=== PATIENT | female | born 1995 | race African-American/Black ===

== ENCOUNTER 2018-01-16 02:01 | Emergency (ER) | payer SELFPAY ==
[2018-01-16] MEDS ORDERED: Cephalexin 250 MG CAP ONE (02:30)
[2018-01-16] MEDS ORDERED: Ketorolac Tromethamine 60 MG/2 ML VIAL ONE (02:30)
== END 2018-01-16 02:41 | disposition home or self-care (01) ==
LOC: NAV ERS 02:01
DX: K02.9 Dental caries, unspecified (principal)
CPT/HCPCS: 96372; J1885

== ENCOUNTER 2019-04-07 03:50 | Emergency (ER) | payer OTHER, SELFPAY ==
[2019-04-07] MEDS ORDERED: Naproxen 500 MG TAB ONE (04:28)
[2019-04-07] MEDS ORDERED: Lidocaine Viscous Sol 2% 15 ml UD Cup ONE (04:28)
[2019-04-07] MEDS ORDERED: Mag-Al Plus 1200 MG/1200 MG/120 MG/30 ML UDCUP ONE (04:28)
== END 2019-04-07 04:38 | disposition home or self-care (01) ==
LOC: NAV ERS 03:50
DX: K12.1 Other forms of stomatitis (principal)
CPT/HCPCS: 99282

== ENCOUNTER 2019-04-13 23:16 | Emergency (ER) | payer OTHER | END 2019-04-13 23:37 | disposition home or self-care (01) | LOC: NAV ERS 23:16 | DX: K12.1 Other forms of stomatitis (principal) | CPT/HCPCS: 99281 ==

== ENCOUNTER 2021-01-02 09:41 | Emergency (ER) | payer OTHER, SELFPAY ==
[~2021-01-02 09:41] MED LIST: Iopamidol 370 76% 100 ML VIAL ONE
[2021-01-02] MEDS ORDERED: Dexamethasone 20 MG/5 ML VIAL ONE (10:18)
[2021-01-02 10:39] LABS: Anion Gap 21 mmol/L (10-20); BUN (Urea Nitrogen) 18 mg/dL (7.0-18.7); CRP (Inflammatory) 31.75 mg/dL (= or < 0.5); Calc. Creatinine Clearance 0 mL/min (70-130); Calcium 10.4 mg/dL (7.8-10.44); Carbon Dioxide 24 mmol/L (22-29); Chloride 99 mmol/L (98-107); Glucose 212 mg/dL (70-105); Potassium 3.9 mmol/L (3.5-5.1); Sodium 140 mmol/L (136-145)
[2021-01-02 10:52] LABS: #Basophils 0.3 thou/uL (0.0-0.2); #Lymphocytes 2.6 thou/uL (1.20-3.40); #Neutrophils 12.8 thou/uL (1.40-6.50); %Basophils 1.4 % (0.0-1.0); %Lymphocytes 14.9 % (21.0-51.0); %Monocytes 11.1 % (0.0-10.0); %Neutrophils 72.5 % (42.0-75.0); Hemoglobin 14.3 g/dL (12.0-16.0); Mean Corpuscular HGB CONC 29.9 g/dL (32.0-36.0); Mean Corpuscular Volume 83.7 fL (78.0-98.0); Mean Platelet Volume 6.6 fL (7.4-10.4); Platelet Count 745 thou/uL (130-400); Red Blood Cell (RBC) Count 5.72 mill/uL (4.20-5.40); White Blood Cell (WBC) Count 17.7 thou/uL (4.8-10.8)
[2021-01-02 10:53] LABS: Platelet Morphology Comment Appears Increased
[2021-01-02 11:49] LABS: BHCG - Serum Negative (NEGATIVE); Pregs Control Bar Appear? YES (CONTROL BAR)
[2021-01-02] MEDS ORDERED: Enoxaparin Sodium 100 MG/ML SYRINGE ONE (12:57)
== END 2021-01-02 13:56 | disposition short-term general hospital (02) ==
LOC: NAV ERS 09:41
DX: U07.1 COVID-19 (principal); J12.82 Pneumonia due to coronavirus disease 2019; I26.99 Other pulmonary embolism without acute cor pulmonale
CPT/HCPCS: 71275; 80048; 84703; 85025; 85379; 86140; 93005; 96372; 96374; J1100; J1650; Q9967

== ENCOUNTER 2021-01-17 19:31 | Emergency (ER) | payer SELFPAY ==
[2021-01-17 20:27] LABS: Prothrombin Time 32.1 sec (12.0-14.7)
[2021-01-17 20:29] LABS: Anion Gap 16 mmol/L (10-20); BUN (Urea Nitrogen) 14 mg/dL (7.0-18.7); Calc. Creatinine Clearance 0 mL/min (70-130); Calcium 9.5 mg/dL (7.8-10.44); Carbon Dioxide 20 mmol/L (22-29); Chloride 105 mmol/L (98-107); Glucose 122 mg/dL (70-105); PTT 58.8 sec (22.9-36.1); Potassium 4.3 mmol/L (3.5-5.1); Sodium 137 mmol/L (136-145)
== END 2021-01-17 20:57 | disposition home or self-care (01) ==
LOC: NAV ERS 19:31
DX: M79.605 Pain in left leg (principal); M79.604 Pain in right leg; F41.9 Anxiety disorder, unspecified
CPT/HCPCS: 36415; 80048; 85610; 85730; 99283

== ENCOUNTER 2021-04-11 09:21 | Emergency (ER) | payer OTHER ==
[2021-04-11 09:56] LABS: #Basophils 0.1 thou/uL (0.0-0.2); #Eosinphils 0.2 thou/uL (0.0-0.7); #Lymphocytes 3.7 thou/uL (1.20-3.40); #Monocytes 0.9 thou/uL (0.11-0.59); #Neutrophils 4.9 thou/uL (1.40-6.50); %Basophils 0.9 % (0.0-1.0); %Eosinophils 1.8 % (0.0-10.0); %Lymphocytes 37.7 % (21.0-51.0); %Monocytes 9.7 % (0.0-10.0); %Neutrophils 49.9 % (42.0-75.0); Mean Corpuscular Hemoglobin 25.8 pg (27.0-31.0); Mean Corpuscular Volume 83.4 fL (78.0-98.0); Mean Platelet Volume 5.9 fL (7.4-10.4); Platelet Count 510 thou/uL (130-400); RBC Distribution Width 15.4 % (11.5-14.5); Red Blood Cell (RBC) Count 4.66 mill/uL (4.20-5.40); White Blood Cell (WBC) Count 9.7 thou/uL (4.8-10.8)
[2021-04-11] MEDS ORDERED: HYDROcodone/Acetaminophen 5/325 mg Tablet ONE (09:56)
[2021-04-11 10:14] LABS: ALT (SGPT) 7 U/L (8-55); AST (SGOT) 10 U/L (5-34); Albumin 4.1 g/dL (3.5-5.0); Alkaline Phosphatase 82 U/L (40-110); Anion Gap 16 mmol/L (10-20); BUN (Urea Nitrogen) 11 mg/dL (7.0-18.7); Bilirubin, Total 0.4 mg/dL (0.2-1.2); Calc. Creatinine Clearance 0 mL/min (70-130); Carbon Dioxide 22 mmol/L (22-29); Chloride 104 mmol/L (98-107); Globulin 3.2 g/dL (2.4-3.5); Glucose 103 mg/dL (70-105); Potassium 3.9 mmol/L (3.5-5.1); Protein, Total 7.3 g/dL (6.0-8.3); Sodium 138 mmol/L (136-145)
== END 2021-04-11 10:40 | disposition home or self-care (01) ==
LOC: NAV ERS 09:21
DX: M79.604 Pain in right leg (principal); I26.99 Other pulmonary embolism without acute cor pulmonale; Z79.01 Long term (current) use of anticoagulants
CPT/HCPCS: 36415; 80053; 85025; 85610; 85730; 99283

== ENCOUNTER 2021-11-28 18:11 | Emergency (ER) | payer SELFPAY ==
[2021-11-28 18:58] LABS: #Basophils 0.1 thou/uL (0.0-0.2); #Eosinphils 0.1 thou/uL (0.0-0.7); #Lymphocytes 2.8 thou/uL (1.20-3.40); #Monocytes 0.7 thou/uL (0.11-0.59); #Neutrophils 5.2 thou/uL (1.40-6.50); %Basophils 0.9 % (0.0-1.0); %Eosinophils 0.6 % (0.0-10.0); %Lymphocytes 31.5 % (21.0-51.0); %Monocytes 8.2 % (0.0-10.0); %Neutrophils 58.7 % (42.0-75.0); Hemoglobin 11.5 g/dL (12.0-16.0); Mean Corpuscular HGB CONC 28.7 g/dL (32.0-36.0); Mean Corpuscular Hemoglobin 23.4 pg (27.0-31.0); Mean Corpuscular Volume 81.6 fL (78.0-98.0); Mean Platelet Volume 6.5 fL (7.4-10.4); Platelet Count 586 thou/uL (130-400); RBC Distribution Width 16.1 % (11.5-14.5); Red Blood Cell (RBC) Count 4.93 mill/uL (4.20-5.40); White Blood Cell (WBC) Count 8.8 thou/uL (4.8-10.8)
[2021-11-28 19:01] LABS: INR-International Normal Ratio 3.9
[2021-11-28 19:02] LABS: PTT 64.4 sec (22.9-36.1)
[2021-11-28 19:09] LABS: ALT (SGPT) 11 U/L (8-55); AST (SGOT) 13 U/L (5-34); Albumin 4.4 g/dL (3.5-5.0); Alkaline Phosphatase 89 U/L (40-110); Anion Gap 17 mmol/L (10-20); BUN (Urea Nitrogen) 11 mg/dL (7.0-18.7); Bilirubin, Total 0.4 mg/dL (0.2-1.2); Calc. Creatinine Clearance 0 mL/min (70-130); Calcium 9.9 mg/dL (7.8-10.44); Carbon Dioxide 23 mmol/L (22-29); Chloride 103 mmol/L (98-107); Estimated GFR 103; Globulin 3.7 g/dL (2.4-3.5); Glucose 142 mg/dL (70-105); Magnesium 1.9 mg/dL (1.6-2.6); Potassium 3.7 mmol/L (3.5-5.1); Protein, Total 8.1 g/dL (6.0-8.3); Sodium 139 mmol/L (136-145)
[2021-11-28] MEDS ORDERED: Acetaminophen 325 MG TAB ONE (19:58)
== END 2021-11-28 20:04 | disposition home or self-care (01) ==
LOC: NAV ERS 18:11
DX: R07.2 Precordial pain (principal); R06.02 Shortness of breath; R79.1 Abnormal coagulation profile; E11.9 Type 2 diabetes mellitus without complications; Z86.711 Personal history of pulmonary embolism; Z79.01 Long term (current) use of anticoagulants
CPT/HCPCS: 71045; 80053; 83735; 83880; 84484; 85025; 85610; 85730; 93005; 94760

== ENCOUNTER 2023-12-31 13:56 | Emergency (ER) | payer SELFPAY ==
[2023-12-31] MEDS ORDERED: Acetaminophen 500 MG TAB ONE (14:14)
== END 2023-12-31 14:26 | disposition home or self-care (01) ==
LOC: NAV ERS 13:56
DX: K04.7 Periapical abscess without sinus (principal); Z86.16 Personal history of COVID-19
CPT/HCPCS: 99282